=== PATIENT | female | born 1990 | race Two or more races ===

== ENCOUNTER 2022-07-31 12:29 | Emergency (ER) | payer OTHER ==
[~2022-07-31] VITALS: Ht 154.9 cm; Wt 83.9 kg
[~2022-07-31 12:29] MED LIST: CARAFATE1 GM; DICLEGIS DR 101 EACH; PEPCID40 MG; PRENA1 TRUE CO1 EACH; ZOLOFT100 MG
[2022-07-31] MEDS ORDERED: PEPCID AC20 MG PO (20:04)
[2022-07-31] MEDS ORDERED: ONDANSETRON ODT8 MG PO (20:04)
== END 2022-07-31 20:13 | disposition home or self-care (01) ==
LOC: ER 12:29
DX: O21.9 Vomiting of pregnancy, unspecified (principal); Z3A.25 25 weeks gestation of pregnancy; R19.7 Diarrhea, unspecified

== ENCOUNTER 2022-09-04 16:30 | Outpatient (CLI) | payer OTHER ==
[~2022-09-04 16:30] MED LIST changes: +ONDANSETRON ODT8 MG PO; +PEPCID AC20 MG PO
== END 2022-09-04 19:00 | disposition home or self-care (01) ==
LOC: NST 16:30
PROVIDERS: ATTEND Obstetrics & Gynecology
DX: Z34.83 Encounter for supervision of other normal pregnancy, third trimester (principal)

== ENCOUNTER 2022-10-23 13:00 | Inpatient (IN) | payer OTHER ==
[~2022-10-23] VITALS: Ht 154.9 cm; Wt 2.7 kg
[2022-11-14] MEDS ORDERED: ZOLOFT20 MG/1 ML PO (14:12)
[2022-11-14] MEDS ORDERED: PEPCID AC20 MG PO (14:12)
[2022-11-14] MEDS ORDERED: CARAFATE1 GM PO (14:13)
[2022-11-14] MEDS ORDERED: FOLIC ACID0.8 M1 PO (14:14)
[2022-11-14] MEDS ORDERED: PREVACID30 MG PO (14:14)
[2022-11-14] MEDS ORDERED: ZOFRAN8 MG PO (14:14)
[2022-11-18] MEDS ORDERED: KETO10TA2 PO (10:22)
== END 2022-11-18 14:23 | disposition home or self-care (01) | DRG 788 ==
LOC: O/R 11-14 13:25 → LDR 11-14 13:25 → O/R 11-15 18:48 → OB/GYN 11-15 20:52
PROVIDERS: ADMIT Obstetrics & Gynecology Gynecology; ATTEND Obstetrics & Gynecology Gynecology
PROC: 3E0P7VZ Introduction of Hormone into Female Reproductive, Via Natural or Artificial Opening (ICD-10-PCS; 2022-11-14)
PROC: 4A1HXCZ Monitoring of Products of Conception, Cardiac Rate, External Approach (ICD-10-PCS; 2022-11-14)
PROC: 3E033VJ Introduction of Other Hormone into Peripheral Vein, Percutaneous Approach (ICD-10-PCS; 2022-11-15)
PROC: 10D00Z1 Extraction of Products of Conception, Low, Open Approach (ICD-10-PCS; principal; 2022-11-15 21:00)
DX: O62.1 Secondary uterine inertia (principal); Z3A.39 39 weeks gestation of pregnancy; Z37.0 Single live birth; Z20.822 Contact with and (suspected) exposure to COVID-19